=== PATIENT | male | born 1980 | race Caucasian/White ===

== ENCOUNTER → 2019-05-31 | Outpatient (CLI) | payer OTHER ==
--- NOTE | 2019-06-01 09:35 | US ---
EXAMINATION TYPE: US abdomen complete DATE OF EXAM: 05/31/2019 COMPARISON: None CLINICAL HISTORY: R10.11 Right upper quadrant pain. Right side pain, NPO EXAM MEASUREMENTS: Liver Length: 17.1 cm Gallbladder Wall: 0.2 cm CBD: 0.4 cm Spleen: 6.9 cm Right Kidney: 10.0 x 4.7 x 4.4 cm Left Kidney: 10.4 x 5.7 x 4.6 cm Pancreas: wnl Liver: wnl Gallbladder: wnl Evidence for sonographic Aguilar's sign: neg CBD: wnl Spleen: wnl Right Kidney: Upper medial pole cystic appearing lesion = 1.5 x 1.4 x 1.2 cm. Lower lateral pole ec hogenic nonvascular lesion - 1.2 x 1.4 x 1.4 cm Left Kidney: wnl Upper IVC: wnl Abd Aorta: distal portion obscured by overlying bowel gas The liver is homogenous. The intrahepatic portion of the IVC and proximal abdominal aorta are within normal limits. There is no evidence of cholelithiasis. Common bile duct is unremarkable. The visu alized portions of the pancreas are homogenous. The spleen is unremarkable. Kidneys are symmetric a nd free of hydronephrosis. Right Upper pole renal cysts noted. Lower pole echogenic nonvascular mass right kidney. CT recommended. IMPRESSION: Right Upper pole renal cysts noted. Lower pole echogenic nonvascular mass right kidney. CT recommende d.
== END ==
LOC: RADUSWWP 16:10
PROVIDERS: ATTEND Family Medicine
DX: N28.1 Cyst of kidney, acquired (principal); N28.89 Other specified disorders of kidney and ureter
CPT/HCPCS: 76700

== ENCOUNTER → 2019-07-02 | Outpatient (CLI) | payer OTHER ==
--- NOTE | 2019-07-03 05:27 | CT ---
EXAMINATION TYPE: CT abdomen wo/w con DATE OF EXAM: 07/02/2019 COMPARISON: 12/24/2014 and ultrasound 05/31/2019 HISTORY: 39-year-old male with abnormal US, neoplasm of kidney. TECHNIQUE: Contiguous axial scanning of the abdomen before and after administration of 100 ml Isovue 300 IV contrast. Delayed images through the kidneys and coronal/sagittal reconstructions performed. CT DLP: 441.00 mGycm Automated exposure control for dose reduction was used. FINDINGS: Heart normal size without pericardial effusion. Lung bases clear without pleural effusion. The liver shows a tiny subcentimeter hypodensity at the right hepatic dome too small for accurate CT characterization, probable cyst. Similar small lesion posterior right liver lobe, axial image 18 also probably represents a cyst. A 1 cm hypodense lesion for 4 right liver lobe, axial image 22 may have been smaller in retrospect in 2015, indolent behavior suggests a benign etiology. Portal venous system is patent. No biliary ducta l dilatation. Gallbladder, adrenal glands, spleen with tiny anterior splenule, and pancreas appear within normal li mits. Tiny subcentimeter cortical hypodensity posterior lower pole left kidney too small for accurate CT ch aracterization, present in retrospect, probable tiny cortical cyst. A cortical cyst along the medial upper pole of the right kidney measures 1.5 cm, slightly larger from 1.2 cm back in 2015 Tiny cortical hypodensity anterior mid to lower pole right kidney too small for CT characterization, probable tiny cortical cyst. Mixed density lesion measures 1.7 cm along the posterior mid to lower pole of the right kidney. Some intrinsic hyperdensity is present on the noncontrast images and postcontrast images show enhancement of approximately 100 Hounsfield units. Some associated fat density is also present. In retrospect, th e lesion previously measured 1.3 cm in 2015. No mesenteric or retroperitoneal lymphadenopathy. No dilated small bowel, free fluid, or free air. Sc attered mild stool. Bones: No osseous destructive process. IMPRESSION: A MIXED DENSITY 1.7 CM LESION ALONG THE POSTERIOR MID TO LOWER POLE OF THE RIGHT KIDNEY. IN RETROSPEC T, THIS MEASURED 1.3 CM BACK IN 2014. THE INDOLENT BEHAVIOR SUGGESTS A BENIGN ETIOLOGY THOUGH THE LES ION REMAINS INDETERMINATE. GIVEN POSTCONTRAST ENHANCEMENT OF 100 HOUNSFIELD UNITS AND SOME INTRINSIC FAT DENSITY, AN AML IS SUSPECTED. SIX-MONTH FOLLOW-UP RENAL ULTRASOUND RECOMMENDED TO ENSURE STABILIT Y SOME RENAL CELL CARCINOMAS CAN ALSO DEMONSTRATE MACROSCOPIC FAT. AGAIN, A BENIGN ETIOLOGY IS FAV ORED.
== END ==
LOC: RADCTMAIN 17:07
PROVIDERS: ATTEND Family Medicine
DX: D41.01 Neoplasm of uncertain behavior of right kidney (principal)
CPT/HCPCS: 74170; Q9967 ×2

== ENCOUNTER → 2020-02-25 | Outpatient (CLI) | payer OTHER ==
--- NOTE | 2020-02-25 13:44 | US ---
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 EXAM MEASUREMENTS: Right Kidney: 10.5 x 3.5 x 5.0 cm Left Kidney: 10.6 x 5.4 x 5.1 cm Right Kidney: Inferior pole shows hyperechoic lesion measuring 0.7 x 0.6 x .05cm, superiolaterally hy perechoic lesion measuring 1.3 x 1.4 x 1.2cm, lesions are stable. Anechoic focus seen on prior exam a t the upper pole not confirmed on today's ultrasound Left Kidney: No hydronephrosis or masses seen Bladder: wnl Bilateral Jets seen: Yes Incidental hyperechoic liver lesions seen measuring 1.3 x 1.4 x 1.1cm and 1.4 x 1.4 x 1.4cm may re present hemangioma There is no evidence for hydronephrosis at this point in time. No nephrolithiasis is seen. The urin benja bladder is anechoic. Bilateral ureteral jets are seen. IMPRESSION: Findings may represent angiomyolipoma within the right kidney, second smaller lesion may represent sa me within the right kidney. Possible hemangiomas within the liver.
== END | disposition home or self-care (01) ==
LOC: RADUSWWP 11:55
PROVIDERS: ATTEND Family Medicine
DX: D17.71 Benign lipomatous neoplasm of kidney (principal)
CPT/HCPCS: 76770